=== PATIENT | male | born 1965 | race Caucasian/White ===

== ENCOUNTER 2021-10-28 15:01 | Inpatient (IN) | payer OTHER, SELFPAY ==
[2021-10-28 15:26] VITALS: BP 134/97; PULSE 79; RESP 18; TEMP 36.8; O2SAT 97
--- NOTE | 2021-10-28 15:28 | PC.OT ---
PATIENT ATTENDED AFTERNOON GROUP. WAS ATTENTIVE; NON-VERBAL. ORDERS FOR OT NOT ENTERED YET SO UNABLE TO BILL FOR GROUP TREATMENT.
[2021-10-28 20:44] VITALS: BP 133/94; PULSE 97; RESP 18; TEMP 36.8; O2SAT 96
[2021-10-29 05:36] VITALS: BP 133/94; PULSE 97; RESP 18; TEMP 36.8; O2SAT 96
--- NOTE | 2021-10-29 06:55 | P.NPUHP_ITS ---
Providers/Chief Complaint Admitting Physician: Michael Hope MD [facility] NPU History of Present Illness Alex Jacobs is a 56 year old male who presented to an outside hospital with reports of taking antifreeze due to being a little depressed. He was transferred to [facility] and admitted to the neuropsychiatric unit for definitive treatment of those issues. He currently denies having any previous inpatient hospitalization or outpatient services or been on any psychiatric medications in the past. He denies cigarette, alcohol, marijuana, or any other illicit drug use. He has never been to a rehab or had a DUI. He only reports that his mother a couple years ago which has been hard. He has had stress at his job, and he reports stress overall. He reports that he had suicidal thought for a moment and went and got antifreeze, and had just a little bit of it, showing an amount in the cup and drank that, and ended up going to bed, and when he woke up the next day, he felt sick. He went into the hospital and that started chain of events with him being hospitalized psychiatrically. He denies any past suicide attempts or any self-injurious behaviors. He denies any need for any interventions and reports he feels fine now, and would prefer no medication or other intervention. PSYCHIATRIC HISTORY: As above. SUBSTANCE ABUSE HISTORY: As above. FAMILY HISTORY: There are no mental health or addiction issues on either side of the family, and no suicide attempts or completions in the family reported. DEVELOPMENTAL HISTORY: He denies any issues with his mother?s or delivery of him. He met all developmental milestones on time. He denies any speech therapy, learning support, emotional support, or special education classes. PSYCHOSOCIAL HISTORY: He reports his parents were together until his mother . He reports that he has an older brother that is the product of the same union. He is 7 years older. He denies either of them having any other children. He reports that his childhood was good/normal. He denies any emotional, physical, or sexual abuse. He denies any history of traumas. He endorses he graduated from high school and denies any additional training. He reports being heterosexual, though he had a very prolonged pause before answering that question and seemed somewhat awkward in his answer. He reports he has never been in any kind of long-term relationship. He reports they have always been fairly short and casual, in his report. He has never been , never had children, never been in the , and reports he has been a practicing [employer] most of his life. He reports he has only had three jobs in his life. One was a 10-year job, and he has been with this last job for about 17 years at [employer]. He currently lives in a house with a roommate. LEGAL HISTORY: Denied. MEDICAL HISTORY: He reports he had a laparoscopic gallbladder surgery about 15 to 20 years ago. Meds NPU Home Medications Medication Instructions Recorded Confirmed Last Taken Type No Known Home Medications 10/28/21 10/28/21 Unknown History Allergies Allergy/AdvReac Type Severity Reaction Status Date / Time Sulfa (Sulfonamide Allergy Unknown Verified 10/28/21 16:45 Antibiotics) Mental Status Exam MSE Comments: This is a short, well-nourished, darker skinned, white male, with hospital scrubs on, with adequate grooming, and eye contact. No abnormal movements. Cooperative with exam in no acute distress. Speech was normal rate and volume. Mood described as great, better than yesterday; affect euthymic. Thought process, organized. Thought content: patient denied any suicidal or homicidal ideation, there were no delusions reported or noted, patient denied any auditory or visual hallucinations. Attention, concentration, and memory appear intact but were not formally tested. He is alert and oriented times three. Insight and judgment appeared limited, impulse control limited. Vitals/I&O/Wt Last Vital Signs Temp 98.2 F 10/29/21 05:36 Pulse 97 10/29/21 05:36 Resp 18 10/29/21 05:36 BP 133/94 10/29/21 05:36 Pulse Ox 96 10/29/21 05:36 Weight last 48 hrs Weight 77.111 kg A&P Assessment and plan (1) Suicidal behavior: Status: Acute (2) Depression: Status: Acute (3) Anxiety: Status: Acute Additional A&P Information This is a 56-year-old, white male, with a recent ingestion of antifreeze, for what is described as a ?second suicidality? without any clear indication of the reasoning, not interested in any additional interventions, at this time. RECOMMENDATION AND PLAN: 1. Continue current medication except will continue to discuss appropriateness of an SSRI likely. 2. Encourage individual, group, and milieu therapy. 3. Continue q-15 minute checks for safety. Involuntary Hold Information 96 Hour Hold: 96 Hour Involuntary Admission: No Attestations NPU Medical Necessity Statement*: Inpatient hospitalization is medically necessary and the clinically appropriate intervention, at this time. We will monitor medications and make changes as indicated. Patient will be in the hospital for over two midnights. Likely length of stay is two to four days. Coding Level of Care Code Acute Carburetor Repairer for [facility] Diagnoses Suicidal behavior R45.89 Depression F32.A Anxiety F41.9
[2021-10-29 14:00] VITALS: BP 152/102; PULSE 94; RESP 18; TEMP 36.4; O2SAT 97
[2021-10-29 20:29] VITALS: BP 139/97; PULSE 99; RESP 17; TEMP 36.6; O2SAT 96
[2021-10-30 05:38] VITALS: BP 139/97; PULSE 99; RESP 17; TEMP 36.6; O2SAT 96
[2021-10-30 14:00] VITALS: BP 145/97; PULSE 82; RESP 16; TEMP 36.7; O2SAT 99
--- NOTE | 2021-10-30 15:38 | W.PM.NPUPNS ---
Subjective NPU Subjective: Interval history: Patient presents today reporting that he feels safe for discharge. I once again try to get a better understanding of the events that led to him coming but he continues to be either unable or unwilling to really connect with what actually occurred. He has however each day denied any interest then harming himself or anyone else has continued to report remorse and regret over his behavior and denied that he would ever do something like that again. We discussed the likelihood of discharge in the morning. Mental Status Exam MSE Comments: This is a short, well-nourished, darker skinned, white male, with hospital scrubs on, with adequate grooming, and eye contact. No abnormal movements. Cooperative with exam in no acute distress. Speech was normal rate and volume. Mood described as pretty good; affect congruent. Thought process, organized. Thought content: patient denied any suicidal or homicidal ideation, there were no delusions reported or noted, patient denied any auditory or visual hallucinations. Attention, concentration, and memory appear intact but were not formally tested. He is alert and oriented times three. Insight and judgment appeared limited, impulse control limited. Vitals/I&O/Wt Last Vital Signs Temp 98.0 F 10/30/21 14:00 Pulse 82 10/30/21 14:00 Resp 16 10/30/21 14:00 BP 145/97 10/30/21 14:00 Pulse Ox 99 10/30/21 14:00 A&P Additional A&P Information (1) Suicidal behavior: (2) Depression: (3) Anxiety: Additional A&P Information This is a 56-year-old, white male, with a recent ingestion of antifreeze, for what is described as a ?second suicidality? without any clear indication of the reasoning, not interested in any additional interventions, at this time. RECOMMENDATION AND PLAN: 1. Continue current medication. Patient not interested in medication. 2. Encourage individual, group, and milieu therapy. 3. Continue q-15 minute checks for safety. Involuntary Hold Information 96 Hour Hold: 96 Hour Involuntary Admission: No Attestations NPU Medical Necessity Statement*: Inpatient hospitalization is medically necessary and the clinically appropriate intervention, at this time. We will monitor medications and make changes as indicated. Likely length of stay is 1-3 days. Coding Level of Care Code Acute Manager Of Tires Sales for [facility] [facility]
[2021-10-30 20:59] VITALS: BP 152/95; PULSE 98; RESP 15; O2SAT 98
[2021-10-31 06:00] VITALS: BP 152/95; PULSE 98; RESP 15; TEMP 36.7; O2SAT 98
--- NOTE | 2021-10-31 09:19 | W.PM.NPUDCS ---
Diagnoses at Discharge Discharge Diagnosis (1) Suicidal behavior: Status: Acute (2) Depression: Status: Acute (3) Anxiety: Status: Acute Reason for Visit Reason for Visit: Brief History: History of Present Illness Alex Jacobs is a 56 year old male who presented to an outside hospital with reports of taking antifreeze due to being a little depressed. He was transferred to [facility] and admitted to the neuropsychiatric unit for definitive treatment of those issues. He currently denies having any previous inpatient hospitalization or outpatient services or been on any psychiatric medications in the past. He denies cigarette, alcohol, marijuana, or any other illicit drug use. He has never been to a rehab or had a DUI. He only reports that his mother a couple years ago which has been hard. He has had stress at his job, and he reports stress overall. He reports that he had suicidal thought for a moment and went and got antifreeze, and had just a little bit of it, showing an amount in the cup and drank that, and ended up going to bed, and when he woke up the next day, he felt sick. He went into the hospital and that started chain of events with him being hospitalized psychiatrically. He denies any past suicide attempts or any self-injurious behaviors. He denies any need for any interventions and reports he feels fine now, and would prefer no medication or other intervention. PSYCHIATRIC HISTORY: As above. SUBSTANCE ABUSE HISTORY: As above. FAMILY HISTORY: There are no mental health or addiction issues on either side of the family, and no suicide attempts or completions in the family reported. DEVELOPMENTAL HISTORY: He denies any issues with his mother?s or delivery of him. He met all developmental milestones on time. He denies any speech therapy, learning support, emotional support, or special education classes. PSYCHOSOCIAL HISTORY: He reports his parents were together until his mother . He reports that he has an older brother that is the product of the same union. He is 7 years older. He denies either of them having any other children. He reports that his childhood was good/normal. He denies any emotional, physical, or sexual abuse. He denies any history of traumas. He endorses he graduated from high school and denies any additional training. He reports being heterosexual, though he had a very prolonged pause before answering that question and seemed somewhat awkward in his answer. He reports he has never been in any kind of long-term relationship. He reports they have always been fairly short and casual, in his report. He has never been , never had children, never been in the , and reports he has been a practicing [employer] most of his life. He reports he has only had three jobs in his life. One was a 10-year job, and he has been with this last job for about 17 years at [employer]. He currently lives in a house with a roommate. LEGAL HISTORY: Denied. MEDICAL HISTORY: He reports he had a laparoscopic gallbladder surgery about 15 to 20 years ago. Hospital Course Hospital Course He slowly acclimated to the individual, group and milieu therapy provided. Multiple attempts were made to explore the use of antidepressants for the circumstance but he was not interested in starting medications. His story surrounding the taking of the antifreeze was total and seemed more likely to represent some kind of attention seeking behavior with possibly significant other that he did not want to reveal. He was monitored for multiple days to ensure a consistent story of lack of lethality. Given his limited desire to engage and him reporting essentially having an epiphany and that things were better and would not happen again. And was able to contract for safety outside the hospital prior to discharge. At the outside hospital, patient had routine laboratory studies which were within normal limits except for few outliers. Additionally there was a general medical evaluation which was also within normal limits and revealed no new acute processes. Discharge Summary: At the time of discharge, he denied psychosis or lethality. Mood and anxiety were well managed. Patient endorsed a plan to avoid all drugs of abuse but seemed ambivalent about following the aftercare recommendations of the treatment team. Patient was evaluated and deemed to be absent credible lethality, and had achieved the maximum benefit from an inpatient hospitalization, so was discharged. Involuntary Hold Information 96 Hour Hold: 96 Hour Involuntary Admission: No Mental Status Exam MSE Comments: This is a short, well-nourished, darker skinned, white male, with hospital scrubs on, with adequate grooming, and eye contact. No abnormal movements. Cooperative with exam in no acute distress. Speech was normal rate and volume. Mood described as pretty good; affect congruent. Thought process, organized. Thought content: patient denied any suicidal or homicidal ideation, there were no delusions reported or noted, patient denied any auditory or visual hallucinations. Attention, concentration, and memory appear intact but were not formally tested. He is alert and oriented times three. Insight and judgment appeared limited, impulse control limited. Discharge Data Vitals: Last Vital Signs Temp 98.0 F 10/31/21 06:00 Pulse 98 10/31/21 06:00 Resp 15 10/31/21 06:00 BP 152/95 10/31/21 06:00 Pulse Ox 98 10/31/21 06:00 Discharge Plan Discharge Patient Disposition: Home Condition: Stable Prescriptions: Continued No Known Home Medications 0RF Discharge Orders: Discharge Order (Routine); Ordered 10/31/21 Ordered By: Michael Hope Discharge Diet: Regular Discharge Activity: Resume usual activity Patient Instructions: Opioid Safety Discharge Attestations NPU Time Spent in Discharge Care*: less than 30 min Specific Discharge Activities: Specific discharge activities: educating patient, discussing with software project manager/social workers/dc planners, documenting/other paperwork and evaluating patient/reviewing data Coding Level of Care Code Acute Chg FW DC note Diagnoses Suicidal behavior R45.89 Depression F32.A Anxiety F41.9
[2021-10-31 09:54] VITALS: BP 152/95; PULSE 98; RESP 15; TEMP 36.7; O2SAT 98
== END 2021-10-31 11:56 | disposition home or self-care (01) | DRG 881 ==
PROVIDERS: Admitting Provider Psychiatry & Neurology Psychiatry; Visit Provider Psychiatry & Neurology Psychiatry
DX: F32.A Depression, unspecified (principal); T65.892A Toxic effect of other specified substances, intentional self-harm, initial encounter; F41.9 Anxiety disorder, unspecified
CPT/HCPCS: 97150; 97165